=== PATIENT | female | born 1935 | race Caucasian/White ===

== ENCOUNTER 2017-09-02 12:15 | Inpatient (IN) | payer OTHER ==
[~2017-09-02] VITALS: Ht 170.2 cm; Wt 75.7 kg
[~2017-09-02 12:15] MED LIST: ALLEGRA ALLERG180 MG PO; COZAAR25 MG; ESOMEPRAZOLE MA20 MG PO; EZETIMIBE10 MG PO; GABAPENTIN300 MG PO; OMEGA 3 1,0001 EACH PO; SYNTHROID50 MCG PO; ZOCOR20 MG PO
[2017-09-11] MEDS ORDERED: INTESTINEX680 M1 PO (13:14)
[2017-09-11] MEDS ORDERED: NEURONTIN300 MG PO (13:14)
[2017-09-11] MEDS ORDERED: ACID REDUCER20 M1 PO (13:14)
== END 2017-09-11 13:50 | disposition home or self-care (01) | DRG 331 ==
LOC: SURH 09-08 07:45 → O/R 09-08 07:45 → SURH 09-08 08:45
PROVIDERS: Surgery
PROC: 0DJD8ZZ Inspection of Lower Intestinal Tract, Via Natural or Artificial Opening Endoscopic (ICD-10-PCS; 2017-09-08)
PROC: 0DTN4ZZ Resection of Sigmoid Colon, Percutaneous Endoscopic Approach (ICD-10-PCS; principal; 2017-09-08 08:45)
DX: K57.32 Diverticulitis of large intestine without perforation or abscess without bleeding (principal); I11.9 Hypertensive heart disease without heart failure; E03.8 Other specified hypothyroidism; E78.00 Pure hypercholesterolemia, unspecified; K29.60 Other gastritis without bleeding; K27.9 Peptic ulcer, site unspecified, unspecified as acute or chronic, without hemorrhage or perforation; D64.89 Other specified anemias